=== PATIENT | female | born 1995 | race Asian ===

== ENCOUNTER 2021-06-02 08:26 | Emergency (ER) | payer BC ==
[~2021-06-02] VITALS: Ht 165.1 cm; Wt 90.7 kg
[2021-06-02 08:31] VITALS: BP 140/84
--- NOTE | 2021-06-02 08:33 | NUR ---
PT TO WAIT IN LOBBY.
[2021-06-02] MEDS ORDERED: ONDANSETRON 4 MG ODT PO ONE (08:45)
[2021-06-02] MEDS ORDERED: KETOROLAC 60 MG/2 ML VIAL IM ONE (08:45)
--- NOTE | 2021-06-02 08:52 | NUR ---
Pt ambulated to bed 07.
[2021-06-02] MEDS ORDERED: NACL 0.9% 1,000 ML IV ONE (09:10)
[2021-06-02] MEDS ORDERED: ONDANSETRON 4 MG/2 ML VIAL IVP ONE ×2 (09:10→11:05)
[2021-06-02 10:18] LABS: BASOPHILS % (AUTO) 0.4 % (0.0-2.0); EOSINOPHILS % (AUTO) 0.3 % (0.0-4.0); HEMATOCRIT 41.7 % (36-48); HEMOGLOBIN 14.4 g/dL (12.0-16.0); LYMPHOCYTES # (AUTO) 1.2 K/uL (2.5-16.5); LYMPHOCYTES % (AUTO) 15.5 % (20.5-51.1); MEAN CORPUSCULAR HEMOGLOBIN 31 pg (27-31); MEAN CORPUSCULAR HGB CONC 35 g/dL (33-37); MEAN CORPUSCULAR VOLUME 90.6 fL (80-94); MONOCYTES # (AUTO) 0.1 K/uL (0.8-1.0); MONOCYTES % (AUTO) 1.7 % (1.7-9.3); NEUTROPHILS # (AUTO) 6.3 K/uL (1.8-7.7); NEUTROPHILS % (AUTO) 82.1 % (42.2-75.2); PLATELET COUNT (AUTO) 258 K/uL (140-450); RED BLOOD CELL COUNT(AUTO) 4.61 MIL/uL (4.20-5.40); RED CELL DISTRIBUTION WIDTH 12.7 % (11.6-13.7); WHITE BLOOD COUNT (AUTO) 7.7 K/uL (4.8-10.8)
[2021-06-02] MEDS ORDERED: fentaNYL citrate 0.05 MG/ML VIAL IVP ONE (11:05)
[2021-06-02 11:23] LABS: ALBUMIN 3.8 g/dL (3.4-5.0); ANION GAP 16.7 (8-16); CARBON DIOXIDE 22.2 mmol/L (21-32); CREATININE 0.6 mg/dL (0.6-1.3); POTASSIUM 3.9 mmol/L (3.5-5.1)
[2021-06-02 11:47] LABS: TOTAL BILIRUBIN 0.3 mg/dL (0.0-1.0)
[2021-06-02] MEDS ORDERED: ACET-8386 PO (11:47)
[2021-06-02 12:00] VITALS: BP 121/70
== END 2021-06-02 12:00 | disposition home or self-care (01) ==
LOC: MED 08:26
DX: K80.50 Calculus of bile duct without cholangitis or cholecystitis without obstruction (principal); R11.2 Nausea with vomiting, unspecified; Z79.891 Long term (current) use of opiate analgesic
CPT/HCPCS: 36415; 80053; 81002; 81025; 82150; 83690; 85025; 96361; 96372; 96374; 96375; 99284; J1885; J2405; J3010; J7030; Q0162